=== PATIENT | female | born 1960 | race Caucasian/White ===

== ENCOUNTER → 2025-05-24 20:20 | Outpatient (REF) | payer OTHER, SELFPAY | LOC: PAVMRI 20:20 | PROVIDERS: ATTENDING PHYSICIAN Student in an Organized Health Care Education/Training Program; FAMILY PHYSICIAN Student in an Organized Health Care Education/Training Program | DX: S83.242A Other tear of medial meniscus, current injury, left knee, initial encounter (principal) | CPT/HCPCS: 73721 ==